=== PATIENT | male | born 1960 | race Caucasian/White ===

== ENCOUNTER 2023-12-27 15:21 | Emergency (ER) | payer BC, SELFPAY ==
[2023-12-27] VITALS (14 sets, daily range): BP systolic 122–153; BP diastolic 67–80; PULSE 52–77; RESP 10–20; TEMP 37.2; O2SAT 94–99; BMI 27.8
--- NOTE | 2023-12-27 15:38 | DI.RAD.S_ITS ---
PROCEDURE: XR CHEST 1V INDICATIONS: chest pain TECHNIQUE: One view of the chest was acquired. COMPARISON: None. FINDINGS: Surgical changes and devices: None. Lungs and pleura: Lungs are clear. No pleural effusions or pneumothorax. Mediastinum: Mediastinal contours appear normal. Heart size is normal. Bones and chest wall: No suspicious bony lesions. Overlying soft tissues appear unremarkable. IMPRESSION: Dom No acute cardiopulmonary abnormality is seen. Dictated by: Shine Carter M.D. on 12/27/2023 at 16:25 Approved by: Shine Carter M.D. on 12/27/2023 at 16:26
[2023-12-27 15:52] LABS: Add Manual Diff / Slide Review NO; Basophils Absolute Auto 0 /uL (0-100); Basophils Percent Auto 0.4 % (0-2); Eosinophils Absolute Auto 0 /uL (0-450); Eosinophils Percent Auto 0.2 % (2-4); Hematocrit 40.4 % (41-53); Hemoglobin 13.8 g/dL (13.5-17.5); Lymphocytes Absolute Auto 1300 /uL (1100-4500); Lymphocytes Percent Auto 13.1 % (25-40); Mean Corpuscular HGB Conc 34.1 % (30-36); Mean Corpuscular Volume 84.8 fL (80-100); Monocytes Absolute Auto 300 /uL (0-900); Monocytes Percent Auto 2.6 % (3-14); Neutrophils Absolute Auto 8600 /uL (1500-7000); Neutrophils Percent Auto 83.7 % (50-75); Platelet Count 279 X10^3/uL (150-400); Red Blood Cell Count 4.76 X10^6/uL (4.5-5.9); Red Cell Distribution Width 13.4 % (11.6-14.8); White Blood Cell Count 10.3 X10^3/uL (4.5-11.0)
[2023-12-27] MEDS: ONDANSETRON 4 MG/2 ML INJ IV (15:59)
[2023-12-27] MEDS: SODIUM CHLORIDE 0.9% 1,000 ML 150 ML IV (15:59)
[2023-12-27] MEDS: MECLIZINE HCL 12.5 MG TABLET 50 MG PO (15:59)
[2023-12-27 16:06] LABS: Alanine Aminotransferase 24 IU/L (<50); Albumin 4.8 g/dL (3.5-5.0); Albumin Globulin Ratio 1.3 (1.0-2.8); Alkaline Phosphatase 86 U/L (38-126); Aspartate Aminotransferase 27 IU/L (17-59); BUN Creatinine Ratio 20.6 (6-22); Bilirubin Total 0.8 mg/dL (0.2-1.3); Blood Urea Nitrogen 13 mg/dL (9-20); Calcium 9.4 mg/dL (8.4-10.2); Carbon Dioxide 27 mmol/L (22-32); Chloride 104 mmol/L (98-107); Creatine Kinase 77 U/L (55-170); Estimated Glomerular Filt Rate > 60 mL/min (>60); Globulin 3.6 g/dL (1.7-4.1); Glucose 149 mg/dL (80-110); HEMOLYSIS < 15 (0-50); Lipase 51 U/L (23-300); Sodium 138 mmol/L (137-145); Total Protein 8.4 g/dL (6.3-8.2)
[2023-12-27 16:17] LABS: Troponin I < 0.012 ng/mL (0.01-0.034)
--- NOTE | 2023-12-27 20:08 | ED_ITS ---
HPI - General Adult General Chief complaint: Dizziness Stated complaint: dizziness, vomiting Time Seen by Provider: 12/27/23 15:37 Source: patient Mode of arrival: Wheelchair History of Present Illness HPI narrative: 63-year-old gentleman currently visiting from [place] with a history of hyperlipidemia was playing with his grand kids vent over and became significantly dizzy. He was so dizzy that he ended up laying down on the floor. He was able to get up sat in the chair for a couple of hours with still dizzy and came into the emergency department. He had a single episode of emesis in the emergency department. He denies any recent fevers, cough, cold, chills, viral infections, chest pain, palpitations, neurologic changes or findings, no recent headaches. He and his note that he typically drinks quite a bit of water and has not been doing that while he has been visiting. Review of Systems Review of Systems Narrative: Pertinent positive and negative findings as per HPI Patient History Medical History (Updated 12/27/23 @ 20:25 by Benita Best MD) Hyperlipidemia Social History Smoking Status: Never smoker Smoking Status: Never smoker alcohol intake frequency: 0-2 drinks per day Substance Use Type: does not use Exam Initial Vital Signs Initial Vital Signs: Vital Signs Pulse Rate 77 12/27/23 15:32 Blood Pressure 153/75 H 12/27/23 15:32 Pulse Oximetry 98 12/27/23 15:32 General: Healthy appearing, in no acute distress. Able to give a complete and coherent history. Well-nourished well-developed HEENT: Moist mucous membranes, normal sclera with reactive pupils, Neck: No JVD, supple Respiratory: Lungs are clear to auscultation, no wheezing no rales no rhonchi. Full and symmetrical air movement Cardiac: Regular rate and rhythm no murmurs no bruits Abdomen: Soft, nontender, good bowel tones, no flank pain Skin: Warm and dry, no rashes Neurologic: Grossly neurologically intact with no obvious asymmetries or abnormalities, no localizing abnormalities. He has no nystagmus, no positional vertigo. He is not vertiginous when he stands and he has not ortho static when he stands Extremities: No trauma, well perfused Psych: Cooperative, appropriate insight and affect Course Orders Ordered: ED Orders 12/27/23 15:38 XR chest 1V Stat 12/27/23 15:45 Complete Blood Count AUTO DIFF Stat Comprehensive Metabolic Panel Stat Lipase Stat Troponin & CK Cardiac Panel Stat Sodium Chloride (Normal Saline 0.9%) 1,000 mls @ 150 mls/hr IV CONT CASSIDY Last Admin: 12/27/23 15:59 Dose: 150 mls/hr Documented By: CAMILLE Discontinued Medications Meclizine HCl (Meclizine Hcl 12.5 Mg Tablet) 50 mg PO NOW ONE Stop: 12/27/23 15:38 Last Admin: 12/27/23 15:59 Dose: 50 mg Documented By: CAMILLE Ondansetron HCl (Ondansetron 4 Mg/2 Ml Inj) 4 mg IV NOW ONE Stop: 12/27/23 15:38 Last Admin: 12/27/23 15:59 Dose: 4 mg Documented By: CAMILLE Vital Signs Vital signs: Vital Signs - 8 hr 12/27/23 15:32 12/27/23 15:32 12/27/23 15:35 Temperature 98.9 F Pulse Rate 77 72 Respiratory Rate 18 Blood Pressure 153/75 H 153/75 H Pulse Oximetry 98 97 Oxygen Delivery Method Room Air 12/27/23 16:00 12/27/23 16:30 12/27/23 16:54 Temperature Pulse Rate 61 59 L 59 L Respiratory Rate 16 18 14 Blood Pressure Pulse Oximetry 95 95 99 Oxygen Delivery Method 12/27/23 16:54 12/27/23 17:00 12/27/23 17:00 Temperature Pulse Rate 60 Respiratory Rate 18 Blood Pressure 134/71 122/70 Pulse Oximetry 96 Oxygen Delivery Method 12/27/23 17:30 12/27/23 17:30 12/27/23 18:00 Temperature Pulse Rate 57 L Respiratory Rate 14 Blood Pressure 128/70 127/68 Pulse Oximetry 96 Oxygen Delivery Method 12/27/23 18:00 12/27/23 18:30 12/27/23 18:30 Temperature Pulse Rate 60 64 Respiratory Rate 17 20 Blood Pressure 131/67 Pulse Oximetry 95 94 Oxygen Delivery Method 12/27/23 19:00 12/27/23 19:00 12/27/23 19:16 Temperature Pulse Rate 73 70 Respiratory Rate 16 12 Blood Pressure 132/70 Pulse Oximetry 95 98 Oxygen Delivery Method 12/27/23 19:16 12/27/23 19:30 12/27/23 19:30 Temperature Pulse Rate 64 Respiratory Rate 13 Blood Pressure 141/73 H 136/70 Pulse Oximetry 97 Oxygen Delivery Method Medical Decision Making Lab Data 12/27/23 15:45 12/27/23 15:45 Labs: Lab Results 12/27/23 Range/Units 15:45 WBC 10.3 (4.5-11.0) X10^3/uL RBC 4.76 (4.5-5.9) X10^6/uL Hgb 13.8 (13.5-17.5) g/dL Hct 40.4 L (41-53) % MCV 84.8 (80-100) fL MCH 29.0 (26-34) PG MCHC 34.1 (30-36) % RDW 13.4 (11.6-14.8) % Plt Count 279 (150-400) X10^3/uL Neut % (Auto) 83.7 H (50-75) % Lymph % (Auto) 13.1 L (25-40) % [place] % (Auto) 2.6 L (3-14) % Eos % (Auto) 0.2 L (2-4) % Baso % (Auto) 0.4 (0-2) % Neut # (Auto) 8600 H (9397-9999) /uL Lymph # (Auto) 1300 (5506-3639) /uL [place] # (Auto) 300 (0-900) /uL Eos # (Auto) 0 (0-450) /uL Baso # (Auto) 0 (0-100) /uL Sodium 138 (137-145) mmol/L Potassium 4.0 (3.4-5.1) mmol/L Chloride 104 (98-107) mmol/L Carbon Dioxide 27 (22-32) mmol/L BUN 13 (9-20) mg/dL Creatinine 0.63 L (0.66-1.25) mg/dL Estimated GFR > 60 (>60) mL/min BUN/Creatinine Ratio 20.6 (6-22) Glucose 149 H (80-110) mg/dL Calcium 9.4 (8.4-10.2) mg/dL Total Bilirubin 0.8 (0.2-1.3) mg/dL AST 27 (17-59) IU/L ALT 24 (<50) IU/L Alkaline Phosphatase 86 (38-126) U/L Total Creatine Kinase 77 (55-170) U/L Troponin I < 0.012 (0.01-0.034) ng/mL Total Protein 8.4 H (6.3-8.2) g/dL Albumin 4.8 (3.5-5.0) g/dL Globulin 3.6 (1.7-4.1) g/dL Albumin/Globulin Ratio 1.3 (1.0-2.8) Lipase 51 (23-300) U/L MDM Narrative Medical decision making narrative: CC: Acute vertigo earlier today Complicating co-morbidities: Hyperlipidemia Data collected from: patient Social determinants of health that may influence the patients condition: Patient is visiting from out of town Differential considered: Stroke, cardiac event, benign positional vertigo, labyrinthitis, vestibular neuritis, infection Exam documented above, pertinent findings include: Patient is examined after he has received a L of fluid, Zofran and meclizine and symptoms have entirely resolved and exam is completely benign Lab Test results independently reviewed as above. Pertinent findings: CBC is unremarkable with no evidence of leukocytosis or anemia Chemistries are reassuring with no electrolyte abnormalities Troponin is undetectable Independently reviewed EKG: EKG shows sinus rhythm at a rate of 73 with no acute ischemic changes Imaging studies independently reviewed: Chest x-ray shows no acute abnormalities Treatments: 1 L of fluid, meclizine, Ativan Discussion: 63-year-old gentleman with a single episode of vertigo while bending over this morning. Workup is quite reassuring. I am not seeing any evidence of stroke, infection, anemia, electrolyte abnormalities or kidney dysfunction, no evidence of inner ear infection, positional vertigo no localizing neurologic signs to suggest additional brain pathology. I do not suspect cardiac dysrhythmia or other abnormalities based on telemetry during his stay and workup today. Findings reviewed with the patient recommended increasing his overall water intake and trying meclizine if his symptoms return. At this point he is safe for discharge Discharge Plan Departure Patient Disposition: Home Clinical Impression: Vertigo Instructions: DI for Vertigo Activity Restrictions/Additional Instructions: Thank you for coming in today I do not have a complete explanation for your dizziness today however I do have a number of things that did not cause your problems. There is no evidence of stroke, heart attack or heart attack like issue including arrhythmia, no infection, no electrolyte or kidney abnormalities, no evidence of benign positional vertigo or other infection. In the emergency department you were given fluids, Ativan and meclizine and this seemed to have relieved most of the symptoms. Meclizine is [id number], it also goes by brand name Antivert and Dramamine ?nonsedating?. I would recommend picking some up at the grocery store or drug store to have on hand needed. If you do not have additional episodes please do not take medication that you do not need If you find that you are getting worse or develop any new symptoms, please feel free to return to the emergency department for further evaluation. Referrals: Miscellaneous,Doctor, MD [Primary Care Provider] - Stand Alone Forms: Patient Portal/API
== END 2023-12-27 20:39 | disposition home or self-care (01) ==
PROVIDERS: Emergency Medicine; Emergency Provider Emergency Medicine
DX: R42 Dizziness and giddiness (principal)
CPT/HCPCS: 36415; 71045; 80053; 82550; 83690; 84484; 85025; 93005; 93010; 96361; 96374; 99284; J2405